=== PATIENT | male | born 1990 | race Caucasian/White ===

== ENCOUNTER 2022-11-06 02:47 | Emergency (ER) | payer OTHER, SELFPAY ==
[2022-11-06 02:57] VITALS: BP 138/81; PULSE 104; RESP 20; TEMP 36.4; O2SAT 100
--- NOTE | 2022-11-06 03:05 | ED.GENADUL_ITS ---
Discharge Plan Disposition Patient Disposition: Home Condition: Good Discharge Details Clinical Impression: Abdominal pain in male Primary Care Provider: Alie Sanders ED Provider: Laura Alberto Home Meds and New Rx's Prescriptions: No Action No Known Home Meds Discharge Instructions Instructions: Abdominal Pain (ED) Additional Instructions: Take Tylenol 650 mg every 4-6 hours as needed for pain. Apply heat as needed to affected area. Return to ED for fever of 100.4 or above, protracted vomiting or diarrhea, uncontrolled pain. Call your PCP this morning for a follow-up check for this week. Medical Decision Making Patient was given a small amount of potassium due to a K of 3. The remainder of his labs were unimpressive. He remains pain-free in the ED. He will return for fever of 100.4 or above, severe pain, protracted vomiting or diarrhea, any other concerns. I asked him to call his PCP this morning for a follow-up appointment. He will try Tylenol and/or heat as needed for pain. Medical Records Medical records reviewed: Yes I reviewed the patient's medical records. Lab Data Lab results reviewed: Yes I reviewed the patient's lab results. HPI General Date/Time Provider Initiated Documentation: 11/06/22 03:05 . HPI Narrative: This 32-year-old male patient presents with a chief complaint of left upper quadrant pain that began 3 days ago. Patient states sometimes it is burning and other times it feels pulsating. He states it tends to come on when he is yawning or coughs but it does not come on with deep inspiration. He has no nausea, vomiting, or diarrhea. He has no fever or chills. He states he has had a very minor cough but no chest pain or difficulty breathing. Patient is pain- free in the ED. The pain has been relatively mild. It does not radiate anywhere. He has not tried anything for it when it comes. Related Data Home Medications Medication Instructions Recorded Confirmed Unknown [No Known Home Meds] 11/06/22 11/06/22 Allergies Allergy/AdvReac Type Severity Reaction Status Date / Time No Known Allergies Allergy Unverified 11/06/22 03:06 General Stated Complaint: Abd Prob POLO: 3 Review of Systems Constitutional Constitutional: Denies chills, Denies fever(s), Denies headache(s) and Denies weakness Eyes Eyes: Denies diplopia and Reports other (no redness) ENT Ears, Nose, Mouth, and Throat: Denies otalgia, Denies headache(s), Denies nasal congestion, Denies nasal discharge, Denies neck pain and Denies sore throat Cardiovascular Cardiovascular: Denies chest pain, Denies palpitations and Denies dyspnea Respiratory Respiratory: Denies cough and Denies dyspnea Gastrointestinal Gastrointestinal: Reports abdominal pain, Denies diarrhea, Denies nausea and Denies vomiting Genitourinary Genitourinary: Denies difficulty urinating and Denies dysuria Musculoskeletal Musculoskeletal: Denies myalgias, Denies muscle weakness, Denies neck pain, Denies numbness and Reports other (edema) Integumentary/Breasts Skin/Breast: Denies change in pigmentation and Denies rash Neurologic Neurologic: Denies headache(s), Denies numbness and Denies weakness Endocrine Endocrine: Denies palpitations PFSH All Active Problems Abdominal pain in male (Acute) Surgical History History of tympanostomy tube placement History of tympanostomy tube placement Social History Smoking/Tobacco Use Status: Former Tobacco Use Smoking risk assessment performed?: Yes Alcohol Intake: never Drug use: Occasionally Substance use type: marijuana Do you feel safe at home: Yes Do you feel safe in your relationship?: Yes Exam Const General: no acute distress, well developed, well groomed and not in acute distress Nutritional Appearance: well nourished Orientation: alert and oriented x3 HENMT Head: normocephalic and atraumatic Ears: external ears normal Mouth: oropharynx normal and moist mucous membranes Throat: posterior oropharynx normal Eyes Conjunctivae: conjunctivae normal Neck Neck: full ROM and supple Chest Chest: normal inspection of the chest Resp Effort & Inspection: normal respiratory effort Auscultation: clear to auscultation bilaterally Cardio Rate: regular rate Rhythm: regular rhythm Heart Sounds: no murmurs and no rubs GI Inspection: normal to inspection Palpation: soft, no hepatosplenomegaly, no aortic enlargement, nontender and other (non distended) Auscultation: normal bowel sounds Skin General skin exam: no rashes or lesions noted and other (pink, warm, dry) Neuro General: patient alert, patient awake and patient oriented x3 Speech: speech normal Motor: other (DICKSON) Sensory Exam: no sensory deficits noted Extrem General: normal to inspection, full ROM and pedal edema present Psych Mental Status: mental status grossly normal Speech and Movement: speech and movement normal Affect: normal affect Course Vital Signs Vital signs: Vital Signs Temperature 36.4 C L 11/06/22 02:57 Pulse 104 H 11/06/22 02:57 Respiratory Rate 20 11/06/22 02:57 Blood Pressure 138/81 11/06/22 02:57 Pulse Oximetry 100 11/06/22 02:57 Temperature 36.4 C L 11/06/22 02:57 Temperature Source Oral 11/06/22 02:57 Pulse 104 H 11/06/22 02:57 Respiratory Rate 20 11/06/22 02:57 Blood Pressure 138/81 11/06/22 02:57 Blood Pressure Position Sitting 11/06/22 02:57 Pulse Oximetry 100 11/06/22 02:57 Oxygen Delivery Method Room Air 11/06/22 02:57 Oxygen Flow Rate 0 11/06/22 02:57 Pain Level 6 11/06/22 02:57
--- NOTE | 2022-11-06 03:10 | NUR.NOTE ---
Nursing Note: Pt states the pain comes and goes, pointing to his upper Left abd, the pt states he had green stool the other day. MD at bedside and states that at times it feels pulsing, but the pain comes and goes with him coughing, yawing and moving.Pt states that he does feel a difference from the right to left side, no signs of hernia.
[2022-11-06 03:56] LABS: Abs Immature Grans 0.02 10^3/uL (0.0-0.06); Absolute Basophil Count 0.02 10^3/uL (0.0-0.2); Absolute Eosinophil Count 0.09 10^3/uL (0.0-0.7); Absolute Lymphocyte Count 2.04 10^3/uL (1.2-3.4); Absolute Monocyte Count 0.38 10^3/uL (0.1-0.8); Basophils % 0.3; Eosinophils % 1.5; HCT 40.5 % (40.0-50.0); HGB 14.3 g/dL (13.5-17.5); Immature Grans % 0.3; Lymphocytes % 33.7; MCH 31.9 pg (27.0-33.0); MCHC 35.3 % (32.0-36.0); MCV 90 fL (80-95); MPV 11.4 fL (8.0-11.0); Magnesium 2.2 mg/dL (1.8-2.4); Monocytes % 6.3; Neutrophils % 57.9; Platelet Count 200 10^3/uL (130-400); RBC 4.48 10^6/uL (4.36-5.78); RDW 12.4 % (11.8-14.1); RDW-SD 40.7 fL; WBC 6.05 10^3/uL (4.4-10.8)
[2022-11-06 04:05] LABS: Lipase 36 U/L (16-77)
[2022-11-06 04:06] LABS: Amylase 43 U/L (25-115)
[2022-11-06 04:07] LABS: ALT 42 U/L (16-63); AST 15 U/L (15-37); Albumin 3.9 g/dL (3.4-5.0); Alkaline Phosphatase 71 U/L (46-116); BUN 10 mg/dL (7-18); Bilirubin, Total 0.4 mg/dL (0.2-1.0); CREATININE 1.1 mg/dL (0.70-1.30); Calcium 8.9 mg/dL (8.5-10.1); Chloride 105 mmol/L (98-107); Glucose 155 mg/dL (74-106); Sodium 141 mmol/L (136-145); Total Protein 7.1 g/dL (6.4-8.2)
[2022-11-06 04:21] LABS: Bilirubin Negative (Negative); Blood Negative (Negative); Clarity Clear (Clear); Glucose Negative (Negative); Ketones Negative (Negative); Leukocyte Esterase Negative (Negative); Nitrite Negative (Negative); Specific Gravity >= 1.030 (1.005-1.025); Urobilinogen 0.2 mg/dL (Up to 0.2); pH 5.5 (5-8)
[2022-11-06] MEDS: Potassium Chloride 20 MEQ TABCR 40 MEQ PO (04:33)
== END 2022-11-06 05:03 | disposition home or self-care (01) ==
PROVIDERS: Emergency Provider Emergency Medicine; PCP Family Medicine
DX: R10.12 Left upper quadrant pain (principal); E87.6 Hypokalemia
CPT/HCPCS: 36415; 80053; 83690; 99283; 81003; 82150; 83735; 85025

== ENCOUNTER 2022-11-14 03:29 | Emergency (ER) | payer OTHER, SELFPAY ==
[2022-11-14 03:32] VITALS: BP 136/87; PULSE 83; RESP 18; TEMP 36.9; O2SAT 97
--- NOTE | 2022-11-14 03:57 | W.ED.GENAD ---
Discharge Plan Disposition Patient Disposition: Home Condition: Good Discharge Details Clinical Impression: Pharyngitis Primary Care Provider: Alie Sanders ED Provider: Mark Velasco Home Meds and New Rx's Prescriptions: No Action No Known Home Meds Discharge Instructions Instructions: Pharyngitis (ED) Additional Instructions: At this time your strep test is negative and your posterior oropharynx shows no signs of tonsillitis or other significant abnormality. I suspect that there is a mild viral irritation component that is occurring that is bringing about your symptoms. Your strep test was negative here. We will be sending it for culture as a precaution though. Please take 800 mg of Motrin every 6 hours and 1000 mg of Tylenol every 6 hours to help with pain. If you notice any worsening of your symptoms, or any new symptoms such as difficulty swallowing or drinking, vomiting, diarrhea, fever, chills, shortness of breath, chest pain, numbness, weakness, or fainting , please return immediately to the emergency department for reevaluation. Please follow up with your primary care provider as soon as possible for reassessment and reevaluation. As always, it was a pleasure participating in your medical care today. Referrals: Alie Sanders [Primary Care Provider] - Medical Decision Making 32-year-old male with a past medical history of strep pharyngitis about a month ago who did receive a full treatment course of amoxicillin presents today for sore throat. He states that the soreness in his throat after he was treated for strep always lingered mildly, however over the last few days it notably increased. He also has associated runny nose, and congestion. He does admit to intermittent minimal cough. He denies any chest pain or shortness of breath. He denies any difficulty swallowing or drinking. He has not taken any NSAIDs tonight. No other complaints at this time. No other modifying factors. Physical exam demonstrates a notably well-appearing male, no erythema in the posterior oropharynx. No tonsillar exudate, no tonsillar enlargement. Minimal cobblestoning in the posterior component. Symptoms inconsistent with strep tonsillitis. Strep test was performed and this was negative. Patient looks very clinically well, no evidence of Ludewig's angina or other concerning neck or oropharyngeal pathology. Suspect mild viral etiology. Will give Toradol here, and recommend continued supportive therapy at home. No clinical evidence of mono. We will send the strep for culture as a precaution. No indication for antibiotics at this time. I have advised the patient that there is a chance that he is just very early in the clinical course of a potential illness, and that if he has any changes in his symptomatology he should return immediately for reassessment. If you notice any worsening of your symptoms, or any new symptoms such as vomiting, diarrhea, fever, chills, shortness of breath, chest pain, numbness, weakness, or fainting , please return immediately to the emergency department for reevaluation. Please follow up with your primary care provider as soon as possible for reassessment and reevaluation. As always, it was a pleasure participating in your medical care today. HPI General Date/Time Provider Initiated Documentation: 11/14/22 03:48. HPI Narrative: 32-year-old male with a past medical history of strep pharyngitis about a month ago who did receive a full treatment course of amoxicillin presents today for sore throat. He states that the soreness in his throat after he was treated for strep always lingered mildly, however over the last few days it notably increased. He also has associated runny nose, and congestion. He does admit to intermittent minimal cough. He denies any chest pain or shortness of breath. He denies any difficulty swallowing or drinking. He has not taken any NSAIDs tonight. No other complaints at this time. No other modifying factors. Related Data Home Medications Medication Instructions Recorded Confirmed Unknown [No Known Home Meds] 11/06/22 11/14/22 Allergies Allergy/AdvReac Type Severity Reaction Status Date / Time No Known Allergies Allergy Unverified 11/14/22 03:37 General Stated Complaint: GenMedical POLO: 4 Review of Systems All systems reviewed & are unremarkable except as noted in HPI and below PFSH All Active Problems Abdominal pain in male (Acute) Pharyngitis (Acute) Surgical History History of tympanostomy tube placement History of tympanostomy tube placement Social History Smoking/Tobacco Use Status: Former Tobacco Use Smoking risk assessment performed?: Yes Alcohol Intake: never Drug use: Occasionally Substance use type: marijuana Do you feel safe at home: Yes Do you feel safe in your relationship?: Yes Exam Narrative Exam Narrative: 1.Const: Well-nourished, Well-developed, appearing stated age 2.Eyes: PERRL, no conjunctival injection, and symmetrical lids. 3.ENT: Atraumatic external nose and ears. Moist MM. Neck: Symmetric, trachea midline, No thyromegaly. No erythema in the posterior oropharynx. No tonsillar enlargement. No tonsillar exudates. No tonsil lifts. No evidence of peritonsillar abscess. No evidence of Ludewig's angina. No evidence of airway compromise. 4.CVS: +S1/S2, No murmurs or gallops. Peripheral pulses 2+ and equal in all extremities. Brisk capillary refill in all extremities. 5.RESP: Unlabored respiratory effort. Clear to auscultation bilaterally. No wheezes rales or rhonchi 6.GI: Soft, Nontender/Nondistended, No hepatosplenomegaly. No guarding or rebound. 7.MSK: Normocephalic/Atraumatic, Extremities w/o deformity or ttp No cyanosis or clubbing, Normal movement of all extremities 8.Skin: Warm, Dry. No rashes or lesions. 9.Neuro: [employer] II-XII grossly intact. Sensation grossly intact, no focal neurologic deficits. 10.Psych: (AAO) x3. Appropriate mood and affect Course Vital Signs Vital signs: Vital Signs Temperature 36.9 C 11/14/22 03:32 Pulse 83 11/14/22 03:32 Respiratory Rate 18 11/14/22 03:32 Blood Pressure 136/87 11/14/22 03:32 Pulse Oximetry 97 11/14/22 03:32 Temperature 36.9 C 11/14/22 03:32 Temperature Source Oral 11/14/22 03:32 Pulse 83 11/14/22 03:32 Respiratory Rate 18 11/14/22 03:32 Respiratory Effort Normal 11/14/22 03:39 Respiratory Depth Normal 11/14/22 03:39 Respiratory Pattern Normal 11/14/22 03:39 Blood Pressure 136/87 11/14/22 03:32 Blood Pressure Position Sitting 11/14/22 03:32 Pulse Oximetry 97 11/14/22 03:32 Oxygen Delivery Method Room Air 11/14/22 03:32 Oxygen Flow Rate 0 11/14/22 03:32 Pain Level 0 11/14/22 03:32
[2022-11-14] MEDS: Ketorolac 30 MG/ML VIAL IM (04:02)
== END 2022-11-14 05:17 | disposition home or self-care (01) ==
PROVIDERS: Emergency Provider Student in an Organized Health Care Education/Training Program; PCP Family Medicine
DX: J02.9 Acute pharyngitis, unspecified (principal)
CPT/HCPCS: 87880; 96372; 99284; 87081; 99283; J1885